=== PATIENT | female | born 1945 | race Hispanic/Latino ===

== ENCOUNTER 2018-11-21 14:02 | Emergency (ER) | payer OTHER ==
[~2018-11-21] VITALS: Ht 154.9 cm; Wt 111.6 kg
[~2018-11-21 14:02] MED LIST: CALCIUM 600 +1 EAC2 PO; CYMBALTA30 MG PO; GLIMEPIRIDE1 MG PO; JANUMET 50-1,01 EACH PO; METFORMIN HCL500 MG PO; PRAVASTATIN SOD40 MG PO; ULTRAM50 MG PO; ZESTRIL20 MG PO
--- OUTSIDE RECORDS SUMMARY | 2018-11-21 14:05 | XMS REPORT | Clinical Summary ---
Author Author [facility] Organization [employer] Address Unknown Phone Unavailable Care Team Providers Care Franchise Field Consultant Name Role Phone Alok Moody MD PCP Allergies No Known Allergies Medications End Date Status Medication Sig Dispensed Refills Start Date Active gabapentin (NEURONTIN) Take 300 mg 1 300 mg capsule by mouth 2 9 (two) times a day. Active amIODarone (PACERONE) 200 Take 200 mg 2 201 MG tablet by mouth 9 daily. Active glimepiride (AMARYL) 2 MG Take 2 mg by 0 tablet mouth daily before breakfast. Active lisinopril-hydrochlorothi Take 1 tablet 0 azide by mouth (PRINZIDE,ZESTORETIC) daily. 20-12.5 mg per tablet Active DULoxetine (CYMBALTA) 30 Take 30 mg by 0 MG capsule mouth daily. 10/10/2018 Discontinued metFORMIN (GLUCOPHAGE) Take 500 mg 0 500 mg tablet by mouth daily with breakfast. 11/09/2018 metFORMIN (GLUCOPHAGE) Take 1 tablet 30 tablet 0 1,000 mg tablet (1,000 mg 9 total) by mouth daily with breakfast for 30 days. 2018 acetaminophen (TYLENOL) Take 2 0 325 MG tablet tablets (650 9 mg total) by mouth every 6 (six) hours as needed for mild pain for up to 30 days. 2018 aspirin 81 mg chewable Chew 1 tablet 60 tablet 0 tablet (81 mg total) 9 2 (two) times a day for 30 days. 10/10/2018 Discontinued HYDROcodone-acetaminophen Take 1 tablet 0 (NORCO) 10-325 mg per by mouth 9 tablet every 6 (six) hours as needed for moderate pain for up to 14 days. Max Daily Amount: 4 tablets 2018 polyethylene glycol Take 17 g by 0 (MIRALAX) 17 gram packet mouth daily 9 as needed for constipation for up to 30 days. 11/09/2018 pantoprazole (PROTONIX) Take 1 tablet 30 tablet 0 40 MG EC tablet (40 mg total) 9 by mouth daily for 30 days. 10/24/2018 traMADol (ULTRAM) 50 mg Take 1 tablet 60 tablet 0 tablet (50 mg total) 9 by mouth every 6 (six) hours as needed for moderate pain for up to 14 days. 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 Encounters Care Team Description Date Type Specialty Loc Sesay CRNA 10/02/2018 Anesthesia Orthopedic Surgery Event Will Forrest MD REVISION, ARTHROPLASTY, HIP 10/02/2018 Surgery Orthopedic Surgery Will Forrest MD Primary osteoarthritis of left hip 10/02/2018 Hospital Cardiology - Encounter 10/10/2018 Phuc Parson 10/02/2018 Telephone Employee Health Will Forrest MD Preop examination (Primary Dx) 09/27/2018 Pre-Admit Pre-Admission Testing Testing Appointment after 11/20/2017 Social History Date Tobacco Use Types Packs/Day Years Used Quit: 1996 Former Smoker Cigarettes 0.5 6 Smokeless Tobacco: Never Used Alcohol Use Drinks/Week oz/Week Comments Never Alcohol Habits Answer Date Recorded How often do you have a drink containing alcohol? Never 09/27/2018 How many drinks containing alcohol do you have on Not asked a typical day when you are drinking? How often do you have six or more drinks on one Not asked occasion? Sex Assigned at Date Recorded Not on file Industry Job Start Date Occupation Not on file Not on file Not on file Travel End Travel History Travel Start No recent travel history available. Last Filed Vital Signs Time Taken Vital Sign Reading 10/10/2018 7:59 AM CDT Blood Pressure 115/60 10/10/2018 7:59 AM CDT Pulse 61 10/10/2018 7:59 AM CDT Temperature 36 C (96.8 F) 10/10/2018 7:59 AM CDT Respiratory Rate 17 10/10/2018 7:59 AM CDT Oxygen Saturation 95% - Inhaled Oxygen - Concentration 10/02/2018 9:03 AM CDT Weight 113 kg (249 lb) 10/02/2018 9:03 AM CDT Height 154.9 cm (5' 1") 10/02/2018 9:03 AM CDT Body Mass Index 47.05 Plan of Treatment Health Maintenance Due Date Last Done Comments BREAST CANCER SCREENING 1994 COLONOSCOPY SCREENING 1994 SHINGLES VACCINES (#1) 1994 65+ PNEUMOCOCCAL VACCINE 2009 (1 of 2 - PCV13) INFLUENZA VACCINE 2018 Implants Device Identifier Shelf Expiration Date Model / Serial / Lot Implanted Type Area Manufactur er 11/11/2022 [id number] / [id number] / LOT NA Head Fem Frozen >=44mm Allograft Human Left: Hip [employer] Leader - [id number] - Tissue LETAL [id number] Implants TRANSPLANT Implanted: Qty: 1 on 10/02/2018 by [facility] Will Forrest MD 04/12/2028 [id number] / / [id number] Osseoti Multihole 56mm F - IPM Left: Hip [employer] [id number] IMPLANT Implanted: 10/02/2018 (Quantity not DEVICES on file) 01/07/2023 [id number] / / [id number] Carl Ts Cer Hd 03/23 28mm +8.5 - IPM Left: Hip DEPUY [id number] IMPLANT ORTHOPAEDI Implanted: 10/02/2018 (Quantity not DEVICES CS, INC on file) 07/10/2023 [id number] / / [id number] Hip, Active Articulation E1 28mm Id IPM Left: Hip [employer] X 44mm Od - [id number] IMPLANT Implanted: 10/02/2018 (Quantity not DEVICES on file) 07/09/2028 [id number] / / [id number] Dual Mobility Liner 44mm F - IPM Left: Hip [employer] [id number] IMPLANT Implanted: 10/02/2018 (Quantity not DEVICES on file) 08/07/2028 [id number] / / [id number] Screw Bone Slf-Tap 6.5x35mm Trilogy Orthopedic N/A: N/A [employer] - [id number] Trauma Implanted: 10/02/2018 (Quantity not Implants on file) 09/07/2028 [id number] / / [id number] Screw Bone Slf-Tap 6.5x25mm Trilogy Orthopedic Left: Hip [employer] - [id number] Trauma Implanted: 10/02/2018 (Quantity not Implants on file) 09/07/2028 [id number] / / [id number] Screw Bone Slf-Tap 6.5x30mm Trilogy Orthopedic Left: Hip [employer] - [id number] Trauma Implanted: 10/02/2018 (Quantity not Implants on file) Procedures Comments Procedure Name Priority Date/Time Associated Diagnosis POC GLUCOSE Routine 10/10/2018 8:00 AM CDT POC GLUCOSE Routine 10/09/2018 9:16 PM CDT POC GLUCOSE Routine 10/09/2018 6:03 PM CDT POC GLUCOSE Routine 10/09/2018 12:02 PM CDT POC GLUCOSE Routine 10/09/2018 8:15 AM CDT ESTIMATED GFR Routine 10/09/2018 5:14 AM CDT BASIC METABOLIC PANEL Routine 10/09/2018 5:14 AM CDT HC COMPLETE BLD COUNT Routine 10/09/2018 W/AUTO DIFF 5:14 AM CDT POC GLUCOSE Routine 10/08/2018 9:36 PM CDT POC GLUCOSE Routine 10/08/2018 5:05 PM CDT POC GLUCOSE Routine 10/08/2018 12:57 PM CDT POC GLUCOSE Routine 10/08/2018 7:43 AM CDT POC GLUCOSE Routine 10/07/2018 10:48 PM CDT POC GLUCOSE Routine 10/07/2018 5:46 PM CDT POC GLUCOSE Routine 10/07/2018 12:26 PM CDT POC GLUCOSE Routine 10/07/2018 8:17 AM CDT POC GLUCOSE Routine 10/06/2018 8:25 PM CDT POC GLUCOSE Routine 10/06/2018 5:40 PM CDT POC GLUCOSE Routine 10/06/2018 12:07 PM CDT POC GLUCOSE Routine 10/06/2018 8:04 AM CDT POC GLUCOSE Routine 10/05/2018 9:45 PM CDT POC GLUCOSE Routine 10/05/2018 5:25 PM CDT POC GLUCOSE Routine 10/05/2018 12:20 PM CDT POC GLUCOSE Routine 10/05/2018 8:22 AM CDT POC GLUCOSE Routine 10/04/2018 9:24 PM CDT POC GLUCOSE Routine 10/04/2018 5:41 PM CDT XR FEMUR 2 VW LEFT STAT 10/04/2018 2:35 PM CDT XR PELVIS 1 OR 2 VW STAT 10/04/2018 2:35 PM CDT POC GLUCOSE Routine 10/04/2018 11:52 AM CDT POC GLUCOSE Routine 10/04/2018 7:31 AM CDT ESTIMATED GFR Routine 10/04/2018 3:30 AM CDT BASIC METABOLIC PANEL Routine 10/04/2018 3:30 AM CDT POC GLUCOSE Routine 10/03/2018 10:39 PM CDT POC GLUCOSE Routine 10/03/2018 5:25 PM CDT POC GLUCOSE Routine 10/03/2018 11:49 AM CDT POC GLUCOSE Routine 10/03/2018 7:46 AM CDT ESTIMATED GFR Routine 10/03/2018 4:45 AM CDT BASIC METABOLIC PANEL Routine 10/03/2018 4:45 AM CDT HEMOGLOBIN & HEMATOCRIT Routine 10/03/2018 4:45 AM CDT POC GLUCOSE Routine 10/02/2018 11:36 PM CDT POC GLUCOSE Routine 10/02/2018 4:21 PM CDT XR PELVIS 1 OR 2 VW Routine 10/02/2018 1:26 PM CDT POC GLUCOSE Routine 10/02/2018 1:16 PM CDT SURGICAL PATHOLOGY Routine 10/02/2018 REQUEST 1:00 PM CDT ARTERIAL LINE Routine 10/02/2018 11:32 AM CDT Procedure Note - Nathan Kc MD - 10/02/2018 11:32 AM CDT Arterial line Performed by: Nathan Kc MD Authorized by: Nathan Kc MD Patient Location: OR Start Time: 10/02/2018 10:32 AM Staff: Anesthesio logist: Nathan Kc MD Performed by: Anesthesio logist Pre-proced ure: patient identified , IV checked, site and side verified, risks and benefits discussed, procedure verified, surgical consent complete, patient position confirmed, monitors and equipment checked and pre-op evaluation complete MSBT: antiseptic used, all elements of maximal sterile barrier technique followed, hand hygiene performed, cap/gown used by other personnel and solutions labeled Indication s: Indication s: hemodynami c monitoring Anesthesia : Anesthesia : General Procedure Details: Arterial Line placement: Placed post induction Line placement site: Radial Line placement side: Right Arterial line gauge: 20 G Number of attempts: 3 Ultrasound guidance used: No Post-proce dure: Post-proce dure: Sterile dressing applied Post procedure circulatio n, sensation, movement: Normal Patient tolerance: Patient tolerated the procedure well with no immediate complicati ons NE AN ELECTIVE Routine 10/02/2018 ENDOTRACHEAL AIRWAY 10:40 AM CDT Procedure Note - Loc Sesay CRNA - 10/02/2018 10:40 AM CDT Airway Performed by: Loc Sesay CRNA Authorized by: Nathan Kc MD Location: OR Urgency: Elective Difficult Airway: No Resident/C RNA/AA: Loc Sesay CRNA Performed by: resident/C RNA/AA Preoxygena jan with 100% O2: Yes C-spine Precaution s Maintained Throughout : No Mask Ventilatio n: Easy mask (with OPA) Final Airway Type: Endotrache al airway Final Endotrache al Airway: ETT Cuffed: Yes Technique Used: Direct laryngosco py Devices/Me thods Used in Placement: Intubatin g stylet Insertion Site: Oral Blade Type: Hutchinson Laryngosco pe Blade/Vide olaryngosc ope Blade Size: 2 ETT Size (mm): 7.0 Cuff at minimum occlusion pressure: Yes Measured from: Lips ETT to Lips (cm): 22 Placement Verified by: CO2 detection, direct visualizat ion and equal breath sounds Laryngosco pic view: Grade I - full view of glottis Rapid Sequence Induction (RSI): No Modified RSI: No Number of Attempts at Approach: 1 Pt ramped with blankets to proper sniffing position. Pt denitrogen ated for 3 minutes, Eyes taped after LOC, BMV establishe d, DLX1, Grade I view, ETT threaded through vocal cords with ease, +ETCO2, Equal and bilateral breath sounds, ETT secured with silk tape. Teeth/lips /gums/VC unchanged from baseline. REVISION, ARTHROPLASTY, 10/02/2018 Primary osteoarthritis of HIP 9:30 AM CDT left hip Special Needs Femoral head allograft available POC GLUCOSE Routine 10/02/2018 8:58 AM CDT URINE CULTURE Routine 09/27/2018 1:32 PM CDT GRAM STAIN Routine 09/27/2018 1:32 PM CDT URINALYSIS SCREEN AND Routine 09/27/2018 Preop examination MICROSCOPY, WITH REFLEX 10:53 AM CDT TO CULTURE ECG PRE/POST OP Routine 09/27/2018 Preop examination 10:38 AM CDT ESTIMATED GFR Routine 09/27/2018 10:15 AM CDT BASIC METABOLIC PANEL Routine 09/27/2018 Preop examination 10:15 AM CDT HEMOGLOBIN A1C Routine 09/27/2018 Preop examination 10:15 AM CDT TYPE AND SCREEN Routine 09/27/2018 Preop examination 10:15 AM CDT CBC HEMOGRAM Routine 09/27/2018 Preop examination 10:15 AM CDT after 11/20/2017 Results * POC glucose (10/10/2018 8:00 AM CDT) Only the most recent of 33 results within the time period is included. [facility] POC glucose 133 (H) 65 - 99 mg/dL [place] Comment: SCIENTOLOGY [facility] Notified RN HOSPITAL Meter ID: [id number] Professor Of Historical Theology: Tain Garcia Specimen Performing Organization Address City/[facility] Phone Number [facility] DEPARTMENT OF [address] [place] [address] * Estimated GFR (10/09/2018 5:14 AM CDT) Only the most recent of 4 results within the time period is included. [facility] Estimated GFR 80 mL/min/1.73 m2 [place] Comment: SCIENTOLOGY [facility] rpretation G1 >=90 Normal or high G2 60-89Mildly decreased [id number] Mildly to moderately decreased W3j64-59 Moderately to severely decreased G4 15-29Severely decreased G5 <15Kidney failure The eGFR was calculated using the Chronic Kidney Disease Epidemiology Collaboration (CKD-EPI) equation. Interpretation is based on recommendations of the National Kidney Foundation-Kidney Disease Outcomes Quality Initiative (NKF-KDOQI) published in 2014. Specimen Plasma specimen Performing Organization Address City/[facility] Phone Number [facility] DEPARTMENT [address] * CBC with platelet and differential (10/09/2018 5:14 AM CDT) [facility] WBC 11.82 (H) 4.50 - 11.00 k/uL [facility] RBC 3.75 (L) 4.20 - 5.50 m/uL [facility] HGB 10.4 (L) 12.0 - 16.0 g/dL [facility] HCT 33.7 (L) 37.0 - 47.0 % [facility] MCV 89.9 82.0 - 100.0 fL [facility] MCH 27.7 27.0 - 34.0 pg [facility] MCHC 30.9 (L) 31.0 - 37.0 g/dL [facility] RDW - SD 45.9 37.0 - 55.0 fL [facility] MPV 10.8 8.8 - 13.2 fL [facility] Platelet count 257 150 - 400 k/uL [facility] Nucleated RBC 0.00 /100 WBC [facility] Neutrophils 52.3 39.0 - 69.0 % [facility] Lymphocytes 33.0 25.0 - 45.0 % [facility] Monocytes 8.9 0.0 - 10.0 % [facility] Eosinophils 4.1 0.0 - 5.0 % [facility] Basophils 0.3 0.0 - 1.0 % [facility] Immature 1.4 (H)Comment: "Immature 0.0 - 1.0 % [place] granulocytes granulocytes" (promyelocytes, SCIENTOLOGY myelocytes, metamyelocytes) HOSPITAL Specimen Blood Performing Organization Address City/State/Zipcode Phone Number [facility] DEPARTMENT OF [address] [place] [address] PATHOLOGY AND GENOMIC MEDICINE [address] * Basic metabolic panel (10/09/2018 5:14 AM CDT) Only the most recent of 4 results within the time period is included. [facility] Sodium 137 135 - 148 mEq/L [facility] Potassium 4.5 3.5 - 5.0 mEq/L [facility] Chloride 99 98 - 112 mEq/L [facility] CO2 26 24 - 31 mEq/L [facility] Anion gap 12@ANIO 7 - 15 mEq/L [facility] BUN 19 8 - 23 mg/dL [facility] Creatinine 0.74 0.50 - 0.90 mg/dL [facility] Glucose 86 65 - 99 mg/dL [facility] Calcium 8.7 (L) 8.8 - 10.2 mg/dL [facility] Specimen Plasma specimen Performing Organization Address City/[facility]/Zipcode Phone Number [facility] DEPARTMENT OF [address] [place] [address] PATHOLOGY AND GENOMIC MEDICINE [facility] [address] * XR Femur 2 Vw Left (10/04/2018 2:35 PM CDT) Specimen Narrative Performed At EXAMINATION:XR FEMUR 2 VW LEFT [facility] CLINICAL HISTORY:new onset hip pain COMPARISON:None. IMPRESSION: 1.Postsurgical changes consistent with a left hip arthroplasty are noted. 2.No hardware loosening. The orthopedic hardware is in normal alignment. 3.Osteopenia. 4.The mid and distal shaft of the left femur is unremarkable. [facility]-[id number] Procedure Note Interface, Radiology Results Incoming - 10/04/2018 2:52 PM CDT EXAMINATION: XR FEMUR 2 VW LEFT CLINICAL HISTORY: new onset hip pain COMPARISON: None. IMPRESSION: 1. Postsurgical changes consistent with a left hip arthroplasty are noted. 2. No hardware loosening. The orthopedic hardware is in normal alignment. 3. Osteopenia. 4. The mid and distal shaft of the left femur is unremarkable. [facility]-[id number] Performing Organization Address City/[facility]/Zipcode Phone Number [facility] [address] [place] [address] * XR Pelvis 1 Or 2 Vw (10/04/2018 2:35 PM CDT) Only the most recent of 2 results within the time period is included. Specimen Narrative Performed At EXAMINATION:XR PELVIS 1 OR 2 VW [facility] CLINICAL HISTORY:New onset hip pain COMPARISON:Pelvic radiograph from 10/02/2018 IMPRESSION: 1.Again noted are changes consistent with bilateral hip arthroplasty. 2.Both hips are in normal alignment, and appear grossly unchanged compared to previous examination from 10/02/2018. There is no evidence of hardware loosening or fracture. 3.The pelvic ring is intact. The sacroiliac joints and symphysis pubis are within normal limits. 4.Osteopenia. [facility]-[id number] Procedure Note Interface, Radiology Results Incoming - 10/04/2018 2:51 PM CDT EXAMINATION: XR PELVIS 1 OR 2 VW CLINICAL HISTORY: New onset hip pain COMPARISON: Pelvic radiograph from 10/02/2018 IMPRESSION: 1. Again noted are changes consistent with bilateral hip arthroplasty. 2. Both hips are in normal alignment, and appear grossly unchanged compared to previous examination from 10/02/2018. There is no evidence of hardware loosening or fracture. 3. The pelvic ring is intact. The sacroiliac joints and symphysis pubis are within normal limits. 4. Osteopenia. [facility]-[id number] Performing Organization Address City/[facility]/[place] [address] * Hemoglobin & hematocrit (10/03/2018 4:45 AM CDT) HGB 11.7 (L) 12.0 - 16.0 g/dL [facility] HCT 37.4 37.0 - 47.0 % [facility] Specimen Blood Performing Organization Address [facility] Phone Number [facility] [place] [address] PATHOLOGY AND GENOMIC MEDICINE [address] * Surgical pathology request (10/02/2018 1:00 PM CDT) [facility] DEPARTMENT OF PATHOLOGY AND GENOMIC MEDICINE Surgical See link below for PDF Lab [facility] DEPARTMENT pathology Report OF PATHOLOGY report AND GENOMIC MEDICINE Result status This is Final Report for [facility] DEPARTMENT [id number] OF PATHOLOGY AND GENOMIC MEDICINE Specimen Performing Organization Address [facility] Phone Number [facility] [place] [address] PATHOLOGY AND GENOMIC MEDICINE * Gram stain (09/27/2018 1:32 PM CDT) Gram stain No WBC's [place] result Many Gram variable rods SCIENTOLOGY Occasional Gram positive cocci HOSPITAL in pairs Comment: Specimen Information Specimen Source: Urine Specimen Site: Clean catch Specimen Urine Performing Organization Address [facility] Phone Number [facility] [place] [address] PATHOLOGY AND GENOMIC MEDICINE [address] * Urine culture (09/27/2018 1:32 PM CDT) Pathologist [facility] Urine culture Mixed aodlph 10-4 col/cc [place] isolate Comment: SCIENTOLOGY Specimen Information HOSPITAL Specimen Source: Urine Specimen Site: Clean catch Specimen Urine Performing Organization Address City/[facility]/Zipcode Phone Number [facility] [place] [address] PATHOLOGY AND GENOMIC MEDICINE [address] * Urinalysis screen and microscopy, with reflex to culture (09/27/2018 10:53 AM CDT) Specimen site Clean catch [facility] Color, UA Yellow [facility] Appearance, UA Clear [facility] Specific 1.018 1.001 - 1.035 [place] gravity, [facility] pH, UA 6.0 5.0 - 8.5 [facility] Protein, UA Negative Negative [facility] Glucose, UA Negative Negative [facility] Ketones, UA Negative Negative [facility] Bilirubin, UA Negative Negative [facility] Blood, UA Negative Negative [facility] Nitrite, UA Negative Negative [facility] Urobilinogen, <2.0 <2.0 [facility] Leukocyte Trace (A) Negative [place] esterase, [facility] Epithelial 10 /HPF [place] cells, [facility] WBC, UA 1 0 - 4 /HPF [facility] RBC, UA None seen 0 - 5 /HPF [facility] Bacteria, UA Few None seen [facility] Yeast, UA None seen [facility] Yeast with None seen [place] [facility] Hyaline casts, >20 (A) /LPF [facility] Specimen Urine Performing Organization Address City/[facility]/Zipcode Phone Number [facility] [place] [address] PATHOLOGY AND GENOMIC MEDICINE [address] * ECG Pre/Post Op (09/27/2018 10:38 AM CDT) Ventricular 60 [facility] rate Atrial rate 60 [facility] QRSD interval 174 [facility] QT interval 496 [facility] QTC interval 496 [facility] P axis 1 69 [facility] QRS axis 1 -46 [facility] T wave axis 129 [facility] EKG impression Sinus rhythm with AV H MUSE dissociation and Wide QRS rhythm-Left axis deviation-Nonspecific intraventricular block-Abnormal ECG-No previous ECGs available- Specimen Narrative Performed At Performing Organization Address City/State/Zipcode Phone Number [facility] MUSE [address] [place] [address] * CBC hemogram (09/27/2018 10:15 AM CDT) WBC 7.88 4.50 - 11.00 k/uL [facility] RBC 4.64 4.20 - 5.50 m/uL [facility] HGB 12.9 12.0 - 16.0 g/dL [facility] HCT 40.6 37.0 - 47.0 % [facility] MCV 87.5 82.0 - 100.0 fL [facility] MCH 27.8 27.0 - 34.0 pg [facility] MCHC 31.8 31.0 - 37.0 g/dL [facility] RDW - SD 43.8 37.0 - 55.0 fL [facility] MPV 11.7 8.8 - 13.2 fL [facility] Platelet count 230 150 - 400 k/uL [facility] Nucleated RBC 0.00 /100 WBC [facility] Specimen Blood Performing Organization Address City/[facility]/Zipcode Phone Number [facility] DEPARTMENT OF [address] [place] [address] PATHOLOGY AND GENOMIC MEDICINE [address] * Type and screen (09/27/2018 10:15 AM CDT) ABO grouping O [facility] Rh type POS [facility] Antibody screen NEG [place] ([facility] Specimen Blood Performing Organization Address City/State/Zipcode Phone Number [facility] DEPARTMENT OF [address] [place] [address] PATHOLOGY AND GENOMIC MEDICINE [address] * Hemoglobin A1c (09/27/2018 10:15 AM CDT) Hemoglobin A1C 7.9 (H) 4.0 - 5.6 % [place] Comment: SCIENTOLOGY HbA1c cutoffs for diagnosing HOSPITAL diabetes: 4.0% - 5.6%=normal 5.7% - 6.4%=increased risk for diabetes (prediabetes) >=6.5%=diabetes Goals for glycemic control (ADA 2016) < 7.0%Target for non adults with diabetes. More or less stringent targets may be appropriate for individual patients. <7.5% Target for Children and adolescents with type 1 diabetes. Specimen Blood Performing Organization Address City/State/Zipcode Phone Number [facility] DEPARTMENT OF [address] [place] [address] PATHOLOGY AND GENOMIC MEDICINE DALE REYNAGA [address] [place] [id number] HOSPITAL after 11/20/2017 Insurance Type Payer Benefit Subscriber ID Effective Phone Address Plan / Dates Group [facility] [place] OPEN xxxxxxxxxxx 2005- ACCESS/NET Present WORK Advance Directives Patient has advance care planning documents on file. For more information, ginna hall contact: Dale Reynaga [address] [place] [id number]
--- OUTSIDE RECORDS SUMMARY | 2018-11-21 14:06 | XMS REPORT ---
Author Author [facility] Address Unknown Phone Unavailable Care Team Providers Care Election Watcher Name Role Phone Unavailable Unavailable Payers Payer Name Policy Type Policy Number Effective Date Expiration Date Problems This patient has no known problems. Allergies, Adverse Reactions, Alerts Allergy Name Allergy Type Status Severity Reaction(s) Onset Date Inactive Date Treating Clinician Comments No Known Allergies DA Active U 2013-05-31 00:00:00 Medications This patient has no known medications. Results Test Description Test Time Test Comments Text Results Atomic Results Result Comments - CT PELVIS W/O CONTRAST 2018-09-11 09:32:00 Patient Name: ADAN VILLALTA Unit No: [id number] EXAMS: CPT CODE: [id number] CT PELVIS W/O CONTRAST 40896 TECHNIQUE: Volumetric CT data of the left hip/pelvis was obtained without use of intravenous contrast. Images were then viewed in the axial, coronal and sagittal planes. CT radiation dose optimization is achieved for this examination by the use of a CT protocol in accordance with ACR practice standards and adherence to pipeline systems operator's recommendations. INDICATION: PAIN COMPARISON: None. 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 The left acetabular component appears superomedially migrated with acetabular protrusio present. Defect of the superomedial acetabulum on the left measures 4 cm (coronal image 300). The acetabular component also appears rotated internally with the femoral component involving abutting the [place] superior acetabulum. The left femoral component is within normal limits. Right hip arthroplasty is without evidence of complication. No acute fracture is identified. Lower lumbar spondylosis is present with severe disc degeneration at L5-S1. 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 The acetabular component also appears rotated internally. at 0932 Reported and signed by: Taj Larios M.D. CC: Will Forrest MD Technologist: Fitz Torres,RT(R) CTDI: DLP: Trnscrpt: 09/11/2018 (1777) [facility] NAME: ADAN VILLALTA [address] [place] [address] PHYS: Will Kulkarni MD : 1945 AGE: 72 SEX: F [place] [address] LOC: Y.RAD PHONE #: [phone] EXAM DATE: 09/10/2018 STATUS: DEP CLI FAX #: [phone] RAD #: [id number] D/C DT PAGE 1 Signed Report Patient Name: ADAN VILLALTA Unit No: [id number] EXAMS: CPT CODE: [id number] CT PELVIS W/O CONTRAST 25430 <Continued> Orig Print D/T: S: 09/11/2018 (0935) [facility] NAME: ADAN VILLALTA [address] [place] [address] PHYS: Will Kulkarni MD : 1945 AGE: 72 SEX: F [place] [address] LOC: Y.RAD PHONE #: [phone] EXAM DATE: 09/10/2018 STATUS: DEP CLI FAX #: [phone] RAD #: [id number] D/C DT PAGE 2 Signed Report CHROMIUM 2018-09-10 07:27:00 CHROMIUM (test code=CHROM) 25.7 ng/mL <3.0 Note: Result verified by repeat analysis. [id number] 07:27:00* Test Item Value Reference Range Comments COBALT (test code=COB) 68.1 ng/mL <3.0 Note: Result verified by repeat analysis.Chromium and cobalt analysis performed by inductively coupledplasma/mass spectrometry (ICP/MS).Reference range is for patients with vwdeq-ao-wqvng (MoM)orthopedic implants.The [place] Association [employer] Hip and Knee Surgeons, the AmericanAcademy of Orthopaedic Surgeons, and The Hip Society, have publisheda consensus statement, "Risk Stratification Algorithm for Managementof Patients with Dcwho-lr-Mkvfd Hip Arthroplasty." The algorithm isintended as an aid to orthopedic surgeons in the assessment andmanagement of patients with Sujos-xn-Rxlaf bearings.The systematic risk stratification includes recommendations formultiple modes of failure and stratifies patient risk groups based eleazar thorough clinical history, a detailed physical examination,radiographic tests, and laboratory tests including measurement ofmetal ions (chromium and cobalt).The following stratification applies to chromium or cobalt asindividual analytes, not to the combined total.Low Risk Group: <3.0 ng/mLModerate Risk Group: 3.0 - 10.0 ng/mLHigh Risk Group: >10.0 ng/mLMetal ion tests are an important adjunct to systemic clinicalassessment; however, metal ion levels alone should not be relied onas the sole parameter to determine clinical recommendations forrevision surgery.J Bone Joint Surg Am. 2014;96:e4(1-6). This test was developed and its performance characteristics determined by [employer]. It has not been cleared or approved by the Food and Drug Administration.Performed At: [facility] [address] [id number] Karla [facility] Ph:[phone] COMPREHENSIVE METABOLIC [id number] 13:07:00* Test Item Value Reference Range Comments SODIUM (test code=NA) 130 mmol/L 136-145 POTASSIUM (test code=K) 4.6 mmol/L 3.5-5.1 CHLORIDE (test code=CL) 97.0 mmol/L 98-107 CARBON DIOXIDE (test code=CO2) 25.8 mmol/L 21-32 GLUCOSE (test code=GLU) 212 mg/dL 70-110 BLOOD UREA NITROGEN (test code=BUN) 31 mg/dL 7-18 GLOMERULAR FILTRATION RATE (test code=GFR) 44.5 >60 Unit of measure: mL/min/1.73 y3Dauhqsdab Range:Healthy Adults >90 mL/min/1.73 m2 For Chronic Kidney Disease: Stage II Mild Decrease in GFR 60-90 Stage III Moderate Decrease in GFR 30-59 Stage IV Severe Decrease in GFR 15-29 Stage V Kidney Failure <15 CREATININE (test code=CREAT) 1.19 mg/dL 0.55-1.30 TOTAL PROTEIN (test code=PROT) 7.6 g/dL 6.4-8.2 ALBUMIN (test code=ALB) 4.0 g/dL 3.4-5.0 GLOBULIN (test code=GLOB) 3.6 g/dL 2.2-4.2 ALBUMIN/GLOBULIN RATIO (test code=A/G) 1.1 0.7-2.0 CALCIUM (test code=CA) 9.8 mg/dL 8.2-10.1 BILIRUBIN TOTAL (test code=BILT) 0.51 mg/dL 0.2-1.00 SGOT/AST (test code=AST) 75.0 U/L 15-37 SGPT/ALT (test code=ALT) 88.0 U/L 12-78 Please note new normal range. ALKALINE PHOSPHATASE TOTAL (test code=ALKP) 76 U/L 46-116 URINALYSIS [id number] 13:00:00* Test Item Value Reference Range Comments UA COLOR (test code=COLU) YELLOW YELLOW UA APPEARANCE (test code=APPU) CLEAR CLEAR UA GLUCOSE DIPSTICK (test code=DGLUU) NEGATIVE NEGATIVE UA BILIRUBIN DIPSTICK (test code=BILU) NEGATIVE NEGATIVE UA KETONE DIPSTICK (test code=KETU) NEGATIVE mg/dL NEG UA SPECIFIC GRAVITY (test code=SGU) 1.020 1.003-1.035 UA BLOOD DIPSTICK (test code=KARI) NEGATIVE NEGATIVE UA PH DIPSTICK (test code=FRANCA) 6.0 >6.5 UA PROTEIN DIPSTICK (test code=PROU) NEGATIVE mg/dL NEG UA UROBILINIOGEN DIPSTICK (test code=URO) 0.2 mg/dL NORM UA NITRITE DIPSTICK (test code=WU) NEGATIVE NEG UA LEUKOCYTE ESTERASE DIPSTICK (test code=LEUU) NEGATIVE NEGATIVE UA WBC (test code=WBCU) <5 /HPF 0-2 UA RBC (test code=RBCU) 0-2 /HPF 0-2 UA EPITHELIAL CELLS (test code=EPIU) 5-10 /HPF 0-2 UA BACTERIA (test code=BACU) MANY /HPF NONE PROTHROMBIN [id number] 12:58:00* Test Item Value Reference Range Comments PROTHROMBIN TIME PATIENT (test code=PTP) 12.1 secs 10.1-12.5 INTERNATIONAL NORMAL RATIO (test code=INR) 1.07 <2.0 RECOMMENDED THERAPEUTIC RANGE FOR ORAL ANTICOAGULANTTREATMENT: CONDITION INRProphylaxis of venous thrombosis in 2.0 - 3.0 high-risk medical or surgical patientsTreatment of venous thrombosis 2.0 - 3.0Prevention of embolism 2.0 - 3.0Prevention of recurrent embolism, or 3.0 - 4.5 patients with mechanical prosthetic intravascular valves IS PATIENT ON ANTICOAGULANTS ? IAas Lab been notified if Patient is on Heparin D rip? NOTHROMBOPLASTIN TIME [id number] 12:58:00* Test Item Value Reference Range Comments PTT ACTIVATED (test code=APTT) 29.1 secs 24.9-37.0 IS PATIENT ON ANTICOAGULANTS ? NHas Lab been notified if Patient is on Heparin D rip? NOCBC W/AUTO [id number] 12:40:00* Test Item Value Reference Range Comments WHITE BLOOD CELL (test code=WBC) 9.7 K/mm3 5.8-11.0 RED BLOOD CELL (test code=RBC) 5.15 M/mm3 4.2-5.4 HEMOGLOBIN (test code=HGB) 13.9 g/dL 12-16 HEMATOCRIT (test code=HCT) 42.3 % 37-47 MEAN CELL VOLUME (test code=MCV) 82 fL 80-98 MEAN CELL HGB (test code=MCH) 27.0 pg 27-34 MEAN CELL HGB CONCENTRATION (test code=MCHC) 32.9 g/dL 30.8-34.1 RED CELL DISTRIBUTION WIDTH (test code=RDW) 13.8 % 11-16 PLT (test code=PLT) 321 K/mm3 130-400 MEAN PLATELET VOLUME (test code=MPV) 10.7 fL 8.9-12.1 NEUTROPHIL % (test code=NT%) 62.7 % 45-70 LYMPHOCYTE % (test code=LY%) 28.0 % 20-40 MONOCYTE % (test code=MO%) 6.7 % 3-10 EOSINOPHIL % (test code=EO%) 1.7 % 1-5 BASOPHIL % (test code=BA%) 0.6 % 0.0-1.1 NEUTROPHIL # (test code=NT#) 6.05 K/mm3 2.00-7.50 LYMPHOCYTE # (test code=LY#) 2.70 K/mm3 1.50-4.00 MONOCYTE # (test code=MO#) 0.65 K/mm3 0.2-0.8 EOSINOPHIL # (test code=EO#) 0.16 K/mm3 0.04-0.4 BASOPHIL # (test code=BA#) 0.06 K/mm3 0.02-0.10 MANUAL DIFF REQUIRED (test code=MDIFF) NO MANUAL DIFF NUCLEATED RED BLOOD CELL (test code=NRBC) 0 % 0-0 - XR FLUORO [id number] 09:35:00 Patient Name: ADAN VILLALTA Unit No: [id number] EXAMS: CPT CODE: [id number] XR FLUORO NDL 06332 FLUOROSCOPICALLY GUIDED left prosthetic hip ASPIRATION COMMENT: After informed consent was obtained a 22-gauge needle is inserted into left prosthetic hip joint under fluoroscopic control using sterile technique. 10 mL of fluid was aspirated. This is sent to the lab for analysis. The patient tolerated the procedure well. 0.5 minutes of fluoroscopy time was used on this exam. at 0935 Reported and signed by: Morales Gonzalez MD CC: Oneil Brice MD Technologist: Mable English RT.(R) Transcribed D/ (0935) t.[email or web address] [facility] NAME: ADAN VILLALTA [address] [facility] PHYS: Oneil Salinas MD : 1945 AGE: 72 SEX: F [place], [place] [address] LOC: Y.RAD PHONE #: EXAM DATE: 08/20/2018 STATUS: DEP CLI FAX #: [phone] RAD #: [id number] D/C DT PAGE 1 Signed Report Patient Name: ADAN VILLALTA Unit No: [id number] EXAMS: CPT CODE: [id number] XR FLUORO NDL 22114 <Continued> Orig Print D/T: S: 08/21/2018 (0939) [facility] NAME: ADAN VILLALTA [address] [facility] PHYS: Oneil Salinas MD : 1945 AGE: 72 SEX: F [place], [place] [address] LOC: Y.RAD PHONE #: [phone] EXAM DATE: 08/20/2018 STATUS: DEP CLI FAX #: [phone] RAD #: [id number] D/C DT PAGE 2 Signed Report SYNOVIAL FLD CELL [id number] 17:19:00* Test Item Value Reference Range Comments SYNOVIAL FLD COLOR (test code=COLSY) YELLOW LT. YELLOW SYNOVIAL FLD APPEARANCE (test code=APPSY) CLOUDY CLEAR SYNOVIAL FLD VOLUME (test code=VOLSY) 4 mL SYNOVIAL FLD WBC (test code=WBCSY) 1254.000 /MM3 0-200 SYNOVIAL FLD RBC (test code=RBCSY) 21620.000 /mm3 0-2 NOTE: An automated method is now being used to determinesynovial fluid WBC and RBC counts. The differential willstill be performed manually. SYNOVIAL FLD POLY (test code=POLYSY) 39 % 0-25 SYNOVIAL FLD LYMPHOCYTE (test code=LYMPHSY) 39 % 0-78 SYNOVIAL FLD MONOCYTE (test code=MONOSY) 21 % 0-71 SYNOVIAL FLD OTHER CELL (test code=OTHERSY) SEE BELOW SYNOVIAL LINING CELL: 1 SPECIMEN COMMENT: ASPIRATION OF THE LEFT HIP DONE BY DR. GONZALEZ SYNOVIAL FLD CELL [id number] 17:18:00* Test Item Value Reference Range Comments SYNOVIAL FLD COLOR (test code=COLSY) LT. YELLOW SYNOVIAL FLD APPEARANCE (test code=APPSY) CLEAR SYNOVIAL FLD VOLUME (test code=VOLSY) mL SYNOVIAL FLD WBC (test code=WBCSY) 1254.000 /MM3 0-200 SYNOVIAL FLD RBC (test code=RBCSY) 92415.000 /mm3 0-2 NOTE: An automated method is now being used to determinesynovial fluid WBC and RBC counts. The differential willstill be performed manually. SPECIMEN COMMENT: ASPIRATION OF THE LEFT HIP DONE BY DR. GONZALEZ
[2018-11-21] MEDS ORDERED: TRAMADOL HCL 50 MG TAB PO ONE (14:30)
--- NOTE | 2018-11-21 15:23 | Diagnostic Imaging Report ---
EXAMINATION: Head and cervical spine CT without contrast. HISTORY: Status post fall, trauma, head and neck pain COMPARISON: None. TECHNIQUE: Multidetector axial images were obtained without contrast from the foramen magnum to the vertex and through the cervical spine. The images were reconstructed using brain and bone algorithms. Thin section brain images were reformatted into coronal and sagittal planes. Dose modulation, iterative reconstruction, and/or weight based adjustment of the mA/kV was utilized to reduce the radiation dose to as low as reasonably achievable. HEAD CT FINDINGS: Skull/scalp: No lytic or blastic lesions. No fractures. Parenchyma: Few scattered limited hypodensities, most likely nonspecific chronic microvascular ischemic changes, within normal limits for patient's age. No mass, hemorrhage or CT evidence of acute vascular insult. Brain volume: Normal for age. Ventricles: No hydrocephalus or displacement. Arteries: No density suggestive of thrombus. Dural sinuses: No abnormal density. Extra-axial spaces: No abnormal density. Foramen magnum: No mass, Chiari malformation, or basilar invagination. Sella: No obvious mass. Paranasal/mastoid sinuses: Imaged portions unremarkable. CERVICAL SPINE CT FINDINGS: Alignment:Reversal of the cervical lordosis which may be related to muscle spasm or positional. Soft tissues: Normal. Vertebrae: Normal height and density. No acute fracture, infection or neoplasm. Degenerative changes: C6-C7: Discussed by complex formation, bilateral uncovertebral arthrosis. Mild spinal canal and moderate bilateral foraminal stenosis worst on the right. IMPRESSION: Head CT: 1. No acute postraumatic intracranial hemorrhage. 2. Mild chronic microvascular ischemic changes. Cervical spine CT: 1. No acute fractures or dislocations. 2. Chronic degenerative changes as described. Note: Acute post traumatic spinal cord, vascular or ligamentous injury cannot adequately be assessed with CT. Signed by: Dr. Vanessa Oneill M.D. on 11/21/2018 3:20 PM
--- NOTE | 2018-11-21 15:33 | Diagnostic Imaging Report ---
EXAMINATION: HIP LEFT 2-3 VW (+/- PELVIS) INDICATION: Trauma COMPARISON: None FINDINGS: 3 images of the left hip and pelvis demonstrate postoperative findings of right and left total hip replacement. Ossific fragments adjacent to the neck of the left femoral prosthesis could represent an acute fracture fragment or alternatively heard topic ossification. Periprosthetic lucency along the superolateral aspect of the left acetabular component. Degenerative changes of the lower lumbar spine. Nonobstructive bowel gas pattern. IMPRESSION: Ossific fragments adjacent to the neck of the left femoral prosthesis may represent acute fracture fragments versus alternatively heterotopic ossification. Mild periprostatic lucency along the superolateral aspect of the left acetabular component. Signed by: Shelli Alfaro MD on 11/21/2018 3:29 PM
--- NOTE | 2018-11-21 17:42 | Diagnostic Imaging Report ---
EXAM: CT Left Hip WITHOUT intravenous contrast INDICATION: Trauma COMPARISON: None. TECHNIQUE: The left hip was scanned utilizing a multidetector helical scanner from the iliac crest through the proximal femur without administration of IV contrast. Metal artifact reduction technique was used. Coronal and sagittal reformations were obtained. IV CONTRAST: None COMPLICATIONS: None RADIATION DOSE: Total DLP: 357.5 mGy*cm Dose modulation, iterative reconstruction, and/or weight based adjustment of the mA/kV was utilized to reduce the radiation dose to as low as reasonably achievable. FINDINGS: The ossific fragment seen on the prior left hip radiograph is again visualized and most likely represents an acute fracture fragment of the lateral anterior acetabular roof. The fracture fragment does not involve the course of any of the acetabular hardware fixation screws. No other acute fractures are identified. The visualized soft tissues appear unremarkable. IMPRESSION: Findings most likely representing acute displaced fracture of the lateral anterior acetabular roof. No other fractures identified. Signed by: Shelli Alfaro MD on 11/21/2018 5:39 PM
--- NOTE | 2018-11-21 18:51 | NUR ---
[facility] notified for transport
== END 2018-11-21 19:01 | disposition home or self-care (01) ==
LOC: ER 14:02
DX: S00.83XA Contusion of other part of head, initial encounter (principal); S00.81XA Abrasion of other part of head, initial encounter; S70.02XA Contusion of left hip, initial encounter; M54.2 Cervicalgia; W01.0XXA Fall on same level from slipping, tripping and stumbling without subsequent striking against object, initial encounter; Y92.121 Bathroom in nursing home as the place of occurrence of the external cause; I10 Essential (primary) hypertension; E11.9 Type 2 diabetes mellitus without complications; I48.91 Unspecified atrial fibrillation; K21.9 Gastro-esophageal reflux disease without esophagitis; D64.9 Anemia, unspecified; Z95.810 Presence of automatic (implantable) cardiac defibrillator
CPT/HCPCS: 70450; 72125; 99284